=== PATIENT | male | born 1975 | race Caucasian/White ===

== ENCOUNTER 2016-10-02 17:46 | Emergency (ER) | payer BC ==
[~2016-10-02] VITALS: Ht 162.6 cm; Wt 61.1 kg
[2016-10-02 17:59] VITALS: BP 132/91
[2016-10-02] MEDS ORDERED: OXYcodone/APAP 5/325MG TABLET PO ONE (18:30)
[2016-10-02] MEDS ORDERED: OXYcodone/APAP 5/325MG TABLET ONE (18:36)
[2016-10-02] MEDS ORDERED: CANA1TAB6 PO (18:40)
[2016-10-02] MEDS ORDERED: INSU100I32 SQ (18:40)
== END 2016-10-02 20:03 | disposition home or self-care (01) ==
LOC: ED 18:51
DX: K02.9 Dental caries, unspecified (principal); E11.9 Type 2 diabetes mellitus without complications
CPT/HCPCS: 99283

== ENCOUNTER 2020-07-06 11:42 | Inpatient (IN) | payer BC ==
[~2020-07-06] VITALS: Ht 162.6 cm; Wt 57.2 kg
[~2020-07-06 11:42] MED LIST: CANA1TAB6 PO; INSU100I32 SQ
--- NOTE | 2020-07-06 12:19 | NUR ---
pt to rm from lobby
[2020-07-06] MEDS ORDERED: ALBUTEROL/IPRATROPIUM 2.5MG/0.5MG, 3 ML NPPB ONE (12:30)
[2020-07-06] MEDS ORDERED: ALBUTEROL/IPRATROPIUM 2.5MG/0.5MG, 3 ML ONE (12:37)
[2020-07-06 12:45] LABS: BASOPHILS % (AUTO) 0 % (0-1); EOSINOPHILS % (AUTO) 1 % (1-7); LYMPHOCYTES % (AUTO) 19 % (22-44); MEAN CORPUSCULAR HEMOGLOBIN 30.7 pg (27.5-34.5); MEAN CORPUSCULAR HGB CONC 34.5 g/dL (33.2-36.2); MEAN PLATELET VOLUME 8.2 fL (7.4-10.4); MONOCYTES % (AUTO) 12 % (2-9); NEUTROPHILS % (AUTO) 69 % (42-75); PLATELET COUNT 227 x10^3/uL (130-400); RED BLOOD COUNT 5.21 x10^6/uL (4.38-5.82); RED CELL DISTRIBUTION WIDTH 12.7 % (9.4-14.8)
[2020-07-06 12:49] LABS: MD NO
[2020-07-06 12:56] LABS: ALBUMIN 3.2 g/dL (3.4-5.0); ANION GAP 3 mmol/L (5-15); CALCIUM 8.5 mg/dL (8.5-10.1); CHLORIDE 103 mmol/L (98-107); CREATININE 0.96 mg/dL (0.7-1.3)
[2020-07-06] MEDS ORDERED: SODIUM CHLORIDE FLUSH 10ML SYR IVF ONE (13:30)
[2020-07-06] MEDS ORDERED: SODIUM CHLORIDE 0.9% 1,000ML IVBOLUS ONE (13:30)
[2020-07-06] MEDS ORDERED: DEXAMETHASONE 4 MG/ML, 1ML IVPush ONE (13:30)
[2020-07-06] MEDS ORDERED: GLIP10TA13 PO (13:33)
[2020-07-06] MEDS ORDERED: METF500T17 PO (13:33)
--- NOTE | 2020-07-06 14:22 | NUR ---
Awaiting blood cultures before IV abx.
--- NOTE | 2020-07-06 14:29 | NUR ---
Pt presents to the ER after his roommate tested positive for COVID and he began experiencing symptoms on Tuesday. Pt noted to be 88% while sitting in bed after breathing treatment, this RN informed pt that he desats while sleeping and he'll need to be admitted. Pt states "I wasn't even asleep."
[2020-07-06] MEDS ORDERED: ACETAMINOPHEN 325 MG TABLET PO PRN (14:30)
[2020-07-06] MEDS ORDERED: AZITHROMYCIN 500 MG TABLET PO ONE (14:30)
[2020-07-06] MEDS ORDERED: PHARMACY MAY ADJ FOR RENAL FX MC PRN (14:30)
[2020-07-06] MEDS ORDERED: MELATONIN 3 MG TABLET PO PRN (14:30)
[2020-07-06] MEDS ORDERED: CEFTRIAXONE PMX 1GM/50ML 50 ML IVPB ONE (14:30)
[2020-07-06] MEDS ORDERED: AZITHROMYCIN 250 MG TABLET ONE (14:33)
[2020-07-06] MEDS ORDERED: DEXAMETHASONE 4 MG/ML, 1ML ONE (14:33)
[2020-07-06] MEDS ORDERED: CEFTRIAXONE PMX 1GM/50ML 50 ML ONE (14:35)
[2020-07-06] MEDS: CEFTRIAXONE PMX 1GM/50ML 50 ML IVPB SCH (14:39)
--- NOTE | 2020-07-06 14:45 | NUR ---
This RN at bedside to witness BC draw. IV abx administered after BC x2 drawn.
[2020-07-06] MEDS ORDERED: IBUPROFEN 600 MG TABLET PO PRN (15:00)
[2020-07-06] MEDS ORDERED: POLYETHYLENE GLYCOL 17 GM PACKET PO PRN (15:00)
[2020-07-06] MEDS ORDERED: DOCUSATE 100 MG CAPSULE PO PRN (15:00)
[2020-07-06] MEDS ORDERED: ONDANSETRON 2MG/ML, 2ML IVPush PRN (15:00)
[2020-07-06] MEDS ORDERED: INSULIN LISPRO 100 UNITS/ML, PEN SQ-INSULIN SCH (16:00)
[2020-07-06 16:38] LABS: D-DIMER 0.72 ug/mlFEU (0.00-0.52)
--- NOTE | 2020-07-06 16:39 | NUR ---
Pt sleeping, visible chest rise and fall. Call light in reach.
--- NOTE | 2020-07-06 16:40 | NUR ---
First attempt to call report.
[2020-07-06 17:15] VITALS: BP 121/88
[2020-07-06] MEDS: DOXYCYCLINE 100 MG in DEXTROSE 5% 250 ML IV SCH (17:58)
[2020-07-06] MEDS: ENOXAPARIN 40 MG/0.4 ML SQ SCH (18:13)
[2020-07-06] MEDS: GUAIFENESIN/DM 100-10MG, 5ML UDC PO PRN (18:13)
[2020-07-06] MEDS: INSULIN LISPRO 100 UNITS/ML, PEN SQ-INSULIN SCH ×2 (18:41→22:06)
[2020-07-06 18:54] VITALS: BP 133/83
[2020-07-06] MEDS ORDERED: INSULIN DEGLUDEC 40 UNIT SQ SCH (21:00)
[2020-07-06] MEDS: ASCORBIC ACID 500 MG TABLET PO SCH (21:00)
[2020-07-06] MEDS ORDERED: ASCORBIC ACID 250 MG TAB ONE (21:16)
[2020-07-06] MEDS: THIAMINE 100MG TABLET PO SCH (21:44)
[2020-07-07 00:32] VITALS: BP 144/76
[2020-07-07] MEDS: DOXYCYCLINE 100 MG in DEXTROSE 5% 250 ML IV SCH ×2 (06:31→17:00)
[2020-07-07 07:48] VITALS: BP 143/78
[2020-07-07] MEDS: INSULIN LISPRO 100 UNITS/ML, PEN SQ-INSULIN SCH ×4 (08:34→21:13)
[2020-07-07] MEDS: THIAMINE 100MG TABLET PO SCH ×2 (08:36→21:14)
[2020-07-07] MEDS: ZINC SULFATE 220 MG CAPSULE PO SCH (08:37)
[2020-07-07] MEDS: ASCORBIC ACID 500 MG TABLET PO SCH ×2 (08:37→21:14)
[2020-07-07] MEDS: DEXAMETHASONE 4 MG/ML, 1ML IVPush SCH (08:37)
[2020-07-07] MEDS: CHOLECALCIFEROL 5,000u TAB PO SCH (08:37)
[2020-07-07] MEDS ORDERED: INSULIN GLARGINE 100 UNITS/ML, PEN SQ-INSULIN SCH (09:00)
[2020-07-07 12:12] VITALS: BP 117/72
[2020-07-07] MEDS: CEFTRIAXONE PMX 1GM/50ML 50 ML IVPB SCH (15:19)
[2020-07-07] MEDS: GUAIFENESIN/DM 100-10MG, 5ML UDC PO PRN (15:25)
[2020-07-07] MEDS: ENOXAPARIN 40 MG/0.4 ML SQ SCH (17:01)
[2020-07-07 20:50] VITALS: BP 136/80
[2020-07-08 00:49] VITALS: BP 110/62
[2020-07-08] MEDS: DOXYCYCLINE 100 MG in DEXTROSE 5% 250 ML IV SCH ×2 (05:38→17:14)
[2020-07-08 06:08] VITALS: BP 136/80
[2020-07-08] MEDS ORDERED: INSULIN GLARGINE 100 UNITS/ML, PEN SQ-INSULIN SCH (07:00)
[2020-07-08] MEDS: DEXAMETHASONE 4 MG/ML, 1ML IVPush SCH (09:00)
[2020-07-08] MEDS ORDERED: DEXAMETHASONE 4 MG/ML, 5ML ONE (09:59)
[2020-07-08] MEDS: THIAMINE 100MG TABLET PO SCH ×2 (10:05→20:57)
[2020-07-08] MEDS: ASCORBIC ACID 500 MG TABLET PO SCH ×2 (10:05→20:57)
[2020-07-08] MEDS: CHOLECALCIFEROL 5,000u TAB PO SCH (10:05)
[2020-07-08] MEDS: ZINC SULFATE 220 MG CAPSULE PO SCH (10:05)
[2020-07-08] MEDS: INSULIN LISPRO 100 UNITS/ML, PEN SQ-INSULIN SCH ×4 (10:06→21:11)
[2020-07-08] MEDS: INSULIN GLARGINE 100 UNITS/ML, PEN SQ-INSULIN SCH ×2 (10:13→21:07)
[2020-07-08 14:00] VITALS: BP 125/75
[2020-07-08] MEDS: CEFTRIAXONE PMX 1GM/50ML 50 ML IVPB SCH (15:48)
[2020-07-08 17:19] VITALS: BP 129/75
[2020-07-08] MEDS: ENOXAPARIN 40 MG/0.4 ML SQ SCH (18:11)
[2020-07-08 20:16] VITALS: BP 133/83
[2020-07-09 01:34] VITALS: BP 109/75
[2020-07-09] MEDS: DOXYCYCLINE 100 MG in DEXTROSE 5% 250 ML IV SCH ×2 (06:19→18:00)
[2020-07-09] MEDS: DEXAMETHASONE 4 MG/ML, 1ML IVPush SCH (08:45)
[2020-07-09] MEDS: THIAMINE 100MG TABLET PO SCH (08:46)
[2020-07-09] MEDS: CHOLECALCIFEROL 5,000u TAB PO SCH (08:46)
[2020-07-09] MEDS: ASCORBIC ACID 500 MG TABLET PO SCH (08:46)
[2020-07-09] MEDS: ZINC SULFATE 220 MG CAPSULE PO SCH (08:46)
[2020-07-09] MEDS: INSULIN GLARGINE 100 UNITS/ML, PEN SQ-INSULIN SCH (08:47)
[2020-07-09] MEDS: INSULIN LISPRO 100 UNITS/ML, PEN SQ-INSULIN SCH ×3 (08:48→18:07)
[2020-07-09] MEDS: CEFTRIAXONE PMX 1GM/50ML 50 ML IVPB SCH (14:29)
[2020-07-09] MEDS ORDERED: DOXY100T PO (14:41)
[2020-07-09] MEDS ORDERED: CHOL500045 PO (14:41)
[2020-07-09] MEDS ORDERED: CEFD300C37 PO (14:41)
[2020-07-09] MEDS ORDERED: DEXA6TAB6 PO (14:41)
[2020-07-09] MEDS ORDERED: ASCO500T9 PO (14:41)
[2020-07-09 17:29] LABS: ANION GAP 5 mmol/L (5-15); CALCIUM 8.8 mg/dL (8.5-10.1); CHLORIDE 101 mmol/L (98-107)
[2020-07-09 17:30] LABS: CREATININE 1.04 mg/dL (0.7-1.3)
[2020-07-09] MEDS ORDERED: INSU100I13 SQ-INSULIN (17:36)
[2020-07-09] MEDS ORDERED: INSU100V8 SQ (17:36)
[2020-07-09] MEDS: ENOXAPARIN 40 MG/0.4 ML SQ SCH (18:00)
== END 2020-07-09 19:03 | disposition home or self-care (01) | DRG 177 ==
LOC: ED 12:39 → EDIP 14:44 → 4WST 17:13
PROVIDERS: ADMIT Internal Medicine; ATTEND Internal Medicine
DX: U07.1 COVID-19 (principal); J12.82 Pneumonia due to coronavirus disease 2019; J96.01 Acute respiratory failure with hypoxia; E11.65 Type 2 diabetes mellitus with hyperglycemia; R00.0 Tachycardia, unspecified; Z84.89 Family history of other specified conditions
CPT/HCPCS: 36415; 80048; 82040; 82962; 83036; 83615; 84145; 85025; 85379; 85384; 87040; 96374; 99285; G0378; J0696; J1100; J1650; J7060; J1815; J7030